=== PATIENT | female | born 1990 | race African-American/Black ===

== ENCOUNTER 2016-10-29 07:44 | Observation (INO) | payer OTHER ==
[~2016-10-29] VITALS: Ht 175.3 cm; Wt 103.0 kg
--- NOTE | ~2016-10-29 | CT4 ---
[facility] A Service of [facility] RADIOLOGY TEXT RESULTS PATIENT: ELIANE BOWERS LOCATION: [facility] [id number] : [birth year] UNIT #: [id number] AGE: [address]: Kevin Henderson MD SEX: F ORDER DR: [id number] [facility] [address] [place], [place] [address] [id number] I MR#: [id number] Acc #: [id number] NAME: ELIANE OBWERS : 1990 SEX: F STUDY DATE/TIME: 10/29/2016 15:33 UNIT: [facility] ROOM: 4 STUDY DESCRIPTION: CT Abd and Pelv Wo Cont Attending Physician: Adrien Quinn M.D. Ordering Physician: Giovanni Guevara M.D. Primary Care Physician: Primary Care Physician No MEDICAL IMAGING REPORT This report is preliminary unless electronic signature is present EXAM Abdomen and pelvis CT, no contrast, 10/29/2016 INDICATIONS 26-year-old female with nausea, vomiting and diarrhea for 2 days, elevated white count, upper abdominal pain, pain severity 10/10. No prior surgeries. TECHNIQUE Noncontrast abdomen and pelvis CT was performed. We have no comparisons. This CT exam was performed with one or more of the following radiation dose reduction techniques: Automatic exposure control, adjustment of mA and/or kV according to patient size, and iterative reconstruction. FINDINGS CT ABDOMEN: Exam markedly degraded by noncontrast technique. Included lung bases are clear, no effusion. Aorta demonstrates no aneurysm. The spleen, adrenal glands and pancreas appear within normal limits for noncontrast technique. Liver and gallbladder are unremarkable. No radiopaque stone or hydronephrosis of either kidney. Visualized ureters unremarkable. CT PELVIS: Bladder unremarkable. Small amount of physiologic free fluid in the pelvis. Incidental probable physiologic cyst in the left ovary measures 3.1 cm. Additional dominant follicle on the left measures about 2 cm. There are also follicles in the right ovary. No drainable fluid collection. No bowel obstruction and the appendix is normal. Inguinal canals are normal. Osseous structures intact. IMPRESSION 1. No clearly acute process identified. Incidental left ovarian cyst measures 3.1 cm, likely physiologic. [facility] A Service of [facility] RADIOLOGY TEXT RESULTS PATIENT: ELIANE BOWERS LOCATION: [facility] 554-01 : [birth year] UNIT #: [id number] AGE: [address]: Kevin Henderson MD SEX: F ORDER DR: 2. The appendix is normal. Dictated by... Armen Villalobos M.D. THIS IS AN ELECTRONICALLY VERIFIED REPORT Armen Villalobos M.D. at 10/30/2016 1:42 PM ARLINE/matt TD: 10/30/2016 00:13 JOB #: [id number] MEDICAL IMAGING REPORT Page 1 of 1 COPY
--- NOTE | ~2016-10-29 | HP ---
Unit #: [id number] #: [id number] Patient: ELIANE BOWERS [id number] [facility]. [place], [place] [address] [id number] I MR#: [id number] NAME: ELIANE BOWERS ROOM: [id number] Age: 26 Sex: F Admission Date: 10/29/2016 : 1990 Attending Physician: Elías Quinn M.D. Primary Care Physician: No Primary Care Physician HISTORY AND PHYSICAL CHIEF COMPLAINT Nausea, vomiting, diarrhea. HISTORY OF PRESENT ILLNESS The patient is a 26-year-old female with a history of acid reflux, brought to the emergency room complaining of the nausea, vomiting and diarrhea. The patient stated the patient has been vomiting since yesterday and is unable to hold anything down. The patient also complains of the acid reflux chest pain and chills, denies any fever. The patient stated the patient was in the [facility] for a few days for the similar presentation and history of multiple boluses of IV fluids. The patient denies any shortness of breath, cough, headache, dizziness. PAST MEDICAL HISTORY None. PAST SURGICAL HISTORY None. HOME MEDICATIONS None. ALLERGIES No known drug allergies. FAMILY HISTORY Reviewed and none. REVIEW OF SYMPTOMS Positive for the acid reflux, positive for nausea and vomiting and heartburn. Denies any chest pain. Denies any fever. Denies any shortness of breath or cough. Other systems reviewed and none. SOCIAL HISTORY Smokes half a pack per day, denies alcohol or any illicit drug abuse. PHYSICAL EXAMINATION GENERAL APPEARANCE: On examination the patient is lying on a bed not in acute distress. VITAL SIGNS: Her vitals are temperature 97.9, pulse 90, respiratory rate 22, blood pressure 137/89, sating 98% at room air. HEENT: Head atraumatic and normocephalic. Pupils equal, round and reacting to light and accommodation. Extraocular movements are intact. Unit #: [id number] #: [id number] Patient: ELIANE BOWERS NECK: Supple. LUNGS: Decreased air entry at the bases. HEART: Regular rate and rhythm. ABDOMEN: Soft. Positive bowel sounds. Epigastric tenderness. EXTREMITIES: No cyanosis. No clubbing. No edema. NEUROLOGIC: Alert, awake, oriented. No gross focal motor deficit. DIAGNOSTIC STUDIES LABORATORY DATA: On lab data patient has WBCs 16.1, hemoglobin 13.3, hematocrit 39.5, platelets 252 and sodium 137, potassium 3.4, chloride 103, bicarb 23, glucose 135, BUN 17, creatinine 0.9, AST 24, ALT 25, alkaline phosphatase 56, lipase 20. Beta hCG is negative. UA shows 2+ protein and 2+ urine bacteria. ASSESSMENT 1. Nausea and vomiting. 2. Acid reflux. PLAN Plan to admit the patient to the observation with the telemetry. Continue with the IV fluids and Zofran and check the urine toxicology, as not done by the ER physician, the patient has any positive urine tox and continue with the Protonix and further recommendations will follow. Dictated by Emily Ontiveros/chase TD: 10/29/2016 15:59 JOB #: [id number] HISTORY AND PHYSICAL Page 1 of 1 X ELÍAS QUINN MD X HISTORY AND PHYSICAL
[2016-10-29 08:19] LABS: BASOPHIL% 0.2 % (0-2.5); HEMATOCRIT 39.5 % (35.0-45.0); HEMOGLOBIN 13.3 gm/dL (12.0-16.0); LYMPHOCYTE# 1.9 X10e3 (1.0-3.5); LYMPHOCYTE% 11.5 % (17.0-45.0); MEAN CELL VOLUME 89.2 FL (83-96); MEAN CORPUSCULAR HEMOGLOBIN 29.9 PG (28-34); MEAN CORPUSCULAR HGB CONC 33.5 g/dL (30-36); MEAN PLATELET VOLUME 8.2 FL (6.5-11.5); MONOCYTE# 0.5 X10e3 (0-1.0); MONOCYTE% 3.1 % (3.0-12.0); NEUTROPHIL# 13.7 X10e3 (1.5-7.1); NEUTROPHIL% 85.2 % (40-75); PLATELET COUNT 252 X10e3 (140-420); RED BLOOD COUNT 4.43 X10e (3.90-5.30); RED CELL DISTRIBUTION WIDTH 13.7 % (11.0-15.5); WHITE BLOOD COUNT 16.1 X10e3 (4.0-10.5)
[2016-10-29 08:21] LABS: DIFF IND YES
[2016-10-29 08:45] LABS: URINE SOURCE CLEAN CATCH
[2016-10-29 08:45] LABS: PLATELET ESTIMATE NORMAL (NORMAL)
[2016-10-29 08:46] LABS: ALBUMIN SERUM 4.5 g/dL (3.5-5.0); BILIRUBIN, DIRECT 0.1 mg/dL (0.0-0.2); BILIRUBIN,INDIRECT 0.7 mg/dL (0.0-0.9); BILIRUBIN,TOTAL 0.8 mg/dL (0.2-2.0); BUN/CREATININE RATIO 18.88; CALCIUM SERUM 9.2 mg/dL (8.4-10.2); CREATININE SERUM 0.9 mg/dL (0.6-1.4); GLOM FILT RATE Estimated 102.3 mL/min (>60); POTASSIUM 3.4 mmol/L (3.5-5.1); PROTEIN TOTAL SERUM 7.7 g/dL (6.0-8.3)
[2016-10-29 08:55] LABS: URINE APPEARANCE CLEAR; URINE BILIRUBIN NEG (NEG); URINE BLOOD TRACE (NEG); URINE COLOR YELLOW; URINE GLUCOSE NEG (NEG); URINE KETONE 2+ (NEG); URINE LEUKOCYTE ESTERASE NEG (NEG); URINE NITRATE NEG (NEG); URINE PH 6.5 (5-8); URINE PROTEIN 1+ (NEG); URINE SPECIFIC GRAVITY 1.033 (1.003-1.035); URINE UROBILINOGEN 0.2 MG/DL (NEG)
[2016-10-29 08:59] LABS: CULTURE INDICATED? YES; URINE BACTERIA AUWI 2+ (NEGATIVE); URINE SQUAMOUS EPITHELIAL CELL FEW /[HPF]
[2016-10-29] MEDS ORDERED: NO MEDICATIONS (17:13)
[2016-10-29 17:45] LABS: AMPHETAMINE NEG (NEG); BARBITURATES NEG (NEG); BENZODIAZEPINES POS (NEG); COCAINE POS (NEG); MARIJUANA POS (NEG); OPIATES NEG (NEG); TRICYCLIC ANTIDEPRESSANTS NEG (NEG); U METHADONE NEG (NEG)
[2016-10-30 07:10] LABS: HEMATOCRIT 36.7 % (35.0-45.0); HEMOGLOBIN 12.4 gm/dL (12.0-16.0); MEAN CELL VOLUME 89.5 FL (83-96); MEAN CORPUSCULAR HEMOGLOBIN 30.2 PG (28-34); MEAN CORPUSCULAR HGB CONC 33.7 g/dL (30-36); MEAN PLATELET VOLUME 8.1 FL (6.5-11.5); RED BLOOD COUNT 4.1 X10e (3.90-5.30); RED CELL DISTRIBUTION WIDTH 13.9 % (11.0-15.5); WHITE BLOOD COUNT 15.6 X10e3 (4.0-10.5)
[2016-10-30 07:27] LABS: BUN/CREATININE RATIO 21.42; CALCIUM SERUM 8.5 mg/dL (8.4-10.2); CREATININE SERUM 0.7 mg/dL (0.6-1.4); GLOM FILT RATE Estimated 138.6 mL/min (>60); POTASSIUM 3.1 mmol/L (3.5-5.1)
[2016-10-31 06:18] LABS: MAGNESIUM 1.8 mg/dL (1.6-3.0); POTASSIUM 3.4 mmol/L (3.5-5.1)
[2016-10-31] MEDS ORDERED: PHENERGAN25 M1 PO (12:23)
== END 2016-10-31 15:22 | disposition home or self-care (01) ==
LOC: CED 07:44 → C5B 13:30 → CEDOF 13:30 → CED 13:53 → CEDOF 16:06 → C5B 16:06 → C2A 10-30 20:22
PROVIDERS: Emergency Medicine; Internal Medicine
DX: R11.2 Nausea with vomiting, unspecified (principal); K21.9 Gastro-esophageal reflux disease without esophagitis; F17.200 Nicotine dependence, unspecified, uncomplicated; N83.202 Unspecified ovarian cyst, left side
CPT/HCPCS: 36415; 74176; 80048; 80076; 80307; 81003; 83690; 83735; 84132; 84703; 85025; 85027; 87086; 96361; 96365; 96366; 96367; 96374; 96375; 96376; 99285; C9113; G0378; J2405; J2550; J2765; J3475

== ENCOUNTER 2016-11-01 18:55 | Emergency (ER) | payer OTHER ==
--- NOTE | ~2016-11-01 | CR72 ---
[facility] A Service of [facility] RADIOLOGY TEXT RESULTS PATIENT: ELIANE BOWERS LOCATION: [facility] : [birth year] UNIT #: [id number] AGE: [address]: Kingsley Bonilla MD SEX: F ORDER DR: [id number] [facility] [address] [place], [place] [address] [id number] E MR#: [id number] Acc #: [id number] NAME: ELIANE BOWERS : 1990 SEX: F STUDY DATE/TIME: 11/01/2016 20:29 UNIT: [facility] ROOM: STUDY DESCRIPTION: CR Chest Single View Portable Attending Physician: Kingsley Bonilla M.D. Ordering Physician: Miladys Beckett M.D. Primary Care Physician: No Primary Care Physician MEDICAL IMAGING REPORT This report is preliminary unless electronic signature is present EXAM Portable chest x-ray 11/01/2016. HISTORY Some shortness of breath. Began 11/01/2016. Bilateral finger tingling. TECHNIQUE AP radiograph of the chest is presented. FINDINGS Heart and mediastinum within normal limits of size and contour. The lungs are well inflated. There is no indication of acute pulmonary disease, pleural effusion or pneumothorax. No suspicious nodule. Densely calcified granuloma left lung base posteromedially. Bony structures unremarkable. Dictated by... Byron Alvarez M.D. THIS IS AN ELECTRONICALLY VERIFIED REPORT Byron Alvarez M.D. at 11/02/2016 2:37 PM ANITHA/nicholas TD: 11/02/2016 12:47 JOB #: [id number] MEDICAL IMAGING REPORT Page 1 of 1 COPY
--- NOTE | ~2016-11-01 | EKG ---
PATIENT: ELIANE BOWERS UNIT #: [id number] Ventricular Rate: 71 BPM Atrial Rate: 71 BPM P-R Interval: 140 ms QRS Duration: 74 ms Q-T Interval: 386 ms QTC Calculation(Bezet): 419 ms P Taylor: 52 degrees Calculated R Taylor: 20 degrees Calculated T Taylor: 22 degrees Diagnosis Line: Normal sinus rhythm Diagnosis Line: Possible Left atrial enlargement Diagnosis Line: Septal infarct , age undetermined Diagnosis Line: Abnormal ECG Diagnosis Line: No previous ECGs available Diagnosis Line: Confirmed by TRENTON ROUSE MD ([id number]) on Diagnosis Line: 11/04/2016 8:53:15 AM INTERPRETING MD: PADMA MORRELL
[~2016-11-01 18:55] MED LIST: NO MEDICATIONS; PHENERGAN25 M1 PO
[2016-11-01 20:51] LABS: BASOPHIL% 0.2 % (0-2.5); EOSINOPHIL% 0.1 % (0.0-7.0); HEMATOCRIT 40.2 % (35.0-45.0); HEMOGLOBIN 13.7 gm/dL (12.0-16.0); LYMPHOCYTE# 2.4 X10e3 (1.0-3.5); LYMPHOCYTE% 22.1 % (17.0-45.0); MEAN CELL VOLUME 87.8 FL (83-96); MEAN CORPUSCULAR HEMOGLOBIN 29.8 PG (28-34); MEAN PLATELET VOLUME 8.2 FL (6.5-11.5); MONOCYTE# 0.5 X10e3 (0-1.0); NEUTROPHIL# 7.9 X10e3 (1.5-7.1); NEUTROPHIL% 72.6 % (40-75); PLATELET COUNT 256 X10e3 (140-420); RED BLOOD COUNT 4.58 X10e (3.90-5.30); RED CELL DISTRIBUTION WIDTH 13.4 % (11.0-15.5); WHITE BLOOD COUNT 10.9 X10e3 (4.0-10.5)
[2016-11-01 20:59] LABS: DIFF IND NO
[2016-11-01 21:00] LABS: POC - CKMB <1.0 ng/mL (0.0-7.9); POC - TROPONIN <0.05 ng/mL (<=0.05)
[2016-11-01 21:16] LABS: LIPASE 18 U/L (22-51)
[2016-11-01 21:17] LABS: ALBUMIN SERUM 4.4 g/dL (3.5-5.0); ALCOHOL BLOOD <5 mg/dL (0); BILIRUBIN, DIRECT 0.2 mg/dL (0.0-0.2); BILIRUBIN,INDIRECT 0.9 mg/dL (0.0-0.9); BILIRUBIN,TOTAL 1.1 mg/dL (0.2-2.0); BUN/CREATININE RATIO 15.55; CALCIUM SERUM 9.2 mg/dL (8.4-10.2); CREATININE SERUM 0.9 mg/dL (0.6-1.4); GLOM FILT RATE Estimated 102.3 mL/min (>60); PROTEIN TOTAL SERUM 7.7 g/dL (6.0-8.3)
[2016-11-01 22:48] LABS: AMPHETAMINE NEG (NEG); BARBITURATES NEG (NEG); BENZODIAZEPINES NEG (NEG); COCAINE NEG (NEG); MARIJUANA POS (NEG); OPIATES NEG (NEG); TRICYCLIC ANTIDEPRESSANTS NEG (NEG); U METHADONE NEG (NEG)
== END 2016-11-01 23:49 | disposition home or self-care (01) ==
LOC: CED 18:55
PROVIDERS: Emergency Medicine
DX: R06.02 Shortness of breath (principal); E87.6 Hypokalemia
CPT/HCPCS: 36415; 71010; 80048; 80076; 80307; 82553; 83690; 84484; 84703; 85025; 93005; 96361; 96374; 96375; 99285; C9113; G0480; J2550